=== PATIENT | male | born 1985 | race Caucasian/White ===

== ENCOUNTER 2016-10-19 23:14 | Emergency (ER) | payer MEDICAID ==
[~2016-10-19] VITALS: Ht 165.1 cm; Wt 74.5 kg
[2016-10-19 23:29] VITALS: Ht 165.1 cm; Wt 74.5 kg
--- NOTE | 2016-10-20 02:26 | ERA ---
ER Documentation Chief Complaint Date/Time DATE: 10/20/16 TIME: 02:25 Chief Complaint abdominal pain 1 month HPI The patient is a 31-year-old male, presenting to the ER because of chronic epigastric abdominal pain. He was seen at the clinic about a month ago and diagnosed with Helicobacter pylori gastritis and treated with antibiotic. However he was unable to tolerate antibiotic after 5 days; therefore he stopped them. He denies fever, chills, neck pain, chest pain, nausea, vomiting, dysuria , diarrhea, constipation. He does not smoke nor drink nor does illicit drug Past medical history: Helicobacter pylori gastritis Past surgical history: None ROS All systems reviewed and are negative except as per history of present illness. Medications Home Meds Active Scripts Omeprazole* (Omeprazole*) 40 Mg Capsule.dr, 40 MG PO DAILY, #10 CAP Prov:ADAM LARA MD 10/20/16 Reported Medications Cyanocobalamin* (Vitamin B12*) 100 Mcg Tab, 100 MCG PO DAILY, TAB 10/20/16 Acetaminophen* (Acetaminophen*) 500 MG Extra Strength Tablet, 500 MG PO Q4H Y for PAIN AND OR ELEVATED TEMP, TAB 10/20/16 Meclizine Hcl* (Meclizine Hcl*) 25 Mg Tablet, 25 MG PO Q8H Y for DIZZINESS, TAB 10/20/16 Ibuprofen* (Ibuprofen*) 200 Mg Capsule, 200 MG PO QID Y for PAIN, CAP 10/20/16 Allergies Allergies: Coded Allergies: No Known Drug Allergies (Verified Allergy, Unknown, 10/19/16) Physical Exam Vitals Vital Signs Date Time Temp Pulse Resp B/P Pulse Ox O2 Delivery O2 Flow Rate FiO2 10/19/16 23:29 98.3 71 20 130/92 98 Physical Exam Const: No acute distress. Head: Atraumatic. Eyes: Normal Conjunctiva. ENT: Normal External Ears, Nose and Mouth. Neck: Full range of motion. No meningismus. Resp: Clear to auscultation bilaterally. Cardio: Regular rate and rhythm, no murmurs. Abd: Soft, non distended, normal bowel sounds, minimal epigastric discomfort, no right lower quadrant, right upper quadrant, CVA tenderness Skin: No petechiae or rashes. Back: No midline or flank tenderness. Ext: No cyanosis, or edema. Neur: Awake and alert. No focal deficit Psych: Normal Mood and Affect. Result Diagram: 5/20/17 0245 10/20/16 0245 Results 24 hrs Laboratory Tests Test 10/20/16 02:45 10/20/16 03:05 White Blood Count 9.510^3/ul Red Blood Count 5.6910^6/ul Hemoglobin 16.8g/dl Hematocrit 47.4% Mean Corpuscular Volume 83.3fl Mean Corpuscular Hemoglobin 29.5pg Mean Corpuscular Hemoglobin Concent 35.4g/dl Red Cell Distribution Width 12.3% Platelet Count 53802^3/UL Mean Platelet Volume 10.0fl Neutrophils % 57.4% Lymphocytes % 31.7% Monocytes % 8.7% Eosinophils % 1.5% Basophils % 0.5% Nucleated Red Blood Cells % 0.0/100WBC Neutrophils # 5.510^3/ul Lymphocytes # 3.010^3/ul Monocytes # 0.810^3/ul Eosinophils # 0.110^3/ul Basophils # 0.110^3/ul Nucleated Red Blood Cells # 0.010^3/ul Sodium Level 144mmol/L Potassium Level 4.0mmol/L Chloride Level 103mmol/L Carbon Dioxide Level 25mmol/L Anion Gap 20 Blood Urea Nitrogen 24mg/dl Creatinine 0.81mg/dl Glucose Level 105mg/dl Calcium Level 9.6mg/dl Total Bilirubin 0.5mg/dl Direct Bilirubin 0.00mg/dl Indirect Bilirubin 0.5mg/dl Aspartate Amino Transf (AST/SGOT) 37IU/L Alanine Aminotransferase (ALT/SGPT) 77IU/L Alkaline Phosphatase 115IU/L Total Protein 8.2g/dl Albumin 4.9g/dl Globulin 3.30g/dl Albumin/Globulin Ratio 1.48 Lipase 65U/L Bedside Urine pH (LAB) 6.0 Bedside Urine Protein (LAB) Negative Bedside Urine Glucose (UA) Negative Bedside Urine Ketones (LAB) Negative Bedside Urine Blood Negative Bedside Urine Nitrite (LAB) Negative Bedside Urine Leukocyte Esterase (L Negative Current Medications Medications (Trade) Dose Ordered Sig/Britt Route PRN Reason Start Time Stop Time Status Last Admin Dose Admin Pantoprazole (Protonix Iv) 40 mg ONCE ONCE IV 10/20/16 03:00 10/20/16 03:01 DC 10/20/16 02:54 Ketorolac Tromethamine (Toradol) 30 mg ONCE STAT IV 10/20/16 02:31 10/20/16 02:33 DC 10/20/16 02:53 Procedures/MDM [place] [id number] Radiology Main Line: [phone] DIAGNOSTIC IMAGING REPORT Patient: COLEEN PIERRE : 1985 Age: 31 Sex: M MR #: [id number] DOS: 10/20/16 0231 Ordering MD: ADAM LARA MD Location: E/R Room/Bed: PROCEDURE: Abdominal ultrasound, limited. CLINICAL INDICATION: Abdominal pain. TECHNIQUE: Multiple real-time images were acquired of the patient's right upper abdomen utilizing a high resolution transducer. COMPARISON: None FINDINGS: The liver demonstrates normal echogenicity and size measuring 15.8 cm. There is no focal mass or intrahepatic biliary ductal dilatation. The portal vein is patent. The gallbladder is not distended. No gallstones are identified. There is no pericholecystic fluid or gallbladder wall thickening. The common bile duct measures 2.9 mm in maximal dimension. The pancreas is obscured by overlying bowel gas. No free fluid is identified. The right kidney is normal size and echogenicity measuring 9.6 cm. There is no focal renal mass or echogenic calculus identified. There is no obstructive uropathy. IMPRESSION: Pancreas obscured by overlying bowel gas. Otherwise unremarkable right upper abdominal ultrasound. .Johnathan Allen MD, MD Date Time Electronically viewed and signed by .Johnathan Allen MD, MD on 10/20/2016 04:14 .T/ CC: ADAM LARA MD MEDICAL MAKING DECISION: The patient is 31-year-old male, presenting with epigastric abdominal pain of unclear etiology. He want to the Protonix 40 mg IV and Toradol 30 mg IV with good response. The differential diagnoses considered include but are not limited to cholelithiasis, cholecystitis, cystitis, pancreatitis, hepatitis, gastritis, peptic ulcer disease, gastric ulcer, appendicitis, diverticulitis, cholangitis, choledocholithiasis, partial small bowel obstruction. Departure Diagnosis: Primary Impression: Abdominal pain Condition: Good Comments He was discharged with Protonix I discussed the findings with the patient. I advised the patient to follow-up with the primary physician in about 1-2 days, sooner if needed and return if any concern. The patient's blood pressure was elevated (>120/80) but appears stable without evidence of hypertension emergency or urgency. The patient was counseled about the risks of hypertension and urged to pursue outpatient monitoring and therapy within a week with their primary care physician. ADAM LARA MD October 20, 2016 02:26
[2016-10-20] MEDS ORDERED: KETOROLAC 30 MG INJ IV STA (02:31)
[2016-10-20 02:58] LABS: ADD SCAN DIFF NO
[2016-10-20 03:00] LABS: BASOPHIL # 0.1 10^3/ul (0.0-0.1); BASOPHILS % 0.5 % (0.0-2.0); EOSINOPHILS # 0.1 10^3/ul (0.0-0.5); EOSINOPHILS % 1.5 % (0.0-7.0); HEMATOCRIT 47.4 % (42.0-52.0); HEMOGLOBIN 16.8 g/dl (14.0-18.0); LYMPHOCYTES % 31.7 % (15.0-51.0); MEAN CORPUSCULAR HEMOGLOBIN 29.5 pg (29.0-33.0); MEAN CORPUSCULAR HGB CONC 35.4 g/dl (32.0-37.0); MEAN CORPUSCULAR VOLUME 83.3 fl (82.0-101.0); MONOCYTE # 0.8 10^3/ul (0.3-0.9); MONOCYTES % 8.7 % (0.0-11.0); NEUTROPHIL # 5.5 10^3/ul (1.6-7.5); NEUTROPHILS % 57.4 % (39.0-77.0); PLATELET COUNT 262 10^3/UL (140-415); RED BLOOD COUNT 5.69 10^6/ul (4.70-6.10); RED CELL DISTRIBUTION WIDTH 12.3 % (11.5-14.5); WHITE BLOOD COUNT 9.5 10^3/ul (4.8-10.8)
[2016-10-20] MEDS ORDERED: PANTOPRAZOLE 40 MG INJ IV ONE (03:00)
[2016-10-20 03:04] LABS: URINE BLOOD (Dip) POC Negative (NEGATIVE)
[2016-10-20] MEDS ORDERED: IBUP200C PO (03:21)
[2016-10-20] MEDS ORDERED: ACET-141 PO (03:21)
[2016-10-20] MEDS ORDERED: CYAN100 PO (03:21)
[2016-10-20] MEDS ORDERED: MECL-77 PO (03:21)
[2016-10-20 03:22] LABS: ALBUMIN 4.9 g/dl (3.3-4.9)
[2016-10-20 03:25] LABS: BILIRUBIN,INDIRECT 0.5 mg/dl (0-1.1); BILIRUBIN,TOTAL 0.5 mg/dl (0.2-1.3); CREATININE 0.81 mg/dl (0.61-1.24)
[2016-10-20 03:26] LABS: ALBUMIN/GLOBULIN RATIO 1.48; CALCIUM 9.6 mg/dl (8.4-10.2); TOTAL PROTEIN 8.2 g/dl (6.1-8.1)
--- NOTE | 2016-10-20 04:14 | RADRPT ---
PROCEDURE: Abdominal ultrasound, limited. CLINICAL INDICATION: Abdominal pain. TECHNIQUE: Multiple real-time images were acquired of the patient's right upper abdomen utilizing a high resolution transducer. COMPARISON: None FINDINGS: The liver demonstrates normal echogenicity and size measuring 15.8 cm. There is no focal mass or in trahepatic biliary ductal dilatation. The portal vein is patent. The gallbladder is not distended. No gallstones are identified. There is no pericholecystic fluid or gallbladder wall thickening. The common bile duct measures 2.9 mm in maximal dimension. The pancreas is obscured by overlying josue wel gas. No free fluid is identified. The right kidney is normal size and echogenicity measuring 9.6 cm. There is no focal renal mass or echogenic calculus identified. There is no obstructive uropathy. IMPRESSION: Pancreas obscured by overlying bowel gas. Otherwise unremarkable right upper abdominal ultrasound. .Johnathan Allen MD, MD Date Time Electronically viewed and signed by .Johnathan Allen MD, MD on 10/20/2016 04:14 .T/
[2016-10-20] MEDS ORDERED: OMEP40CA6 PO (05:04)
[2016-10-20 05:14] VITALS: BP 101/66; PULSE 64; RESP 18
== END 2016-10-20 05:15 | disposition home or self-care (01) ==
LOC: E/R 23:14
DX: R10.13 Epigastric pain (principal)
CPT/HCPCS: 36415; 76705; 80053; 81003; 83690; 85025; 96374; 96375; C9113; J1885; Z7502